=== PATIENT | female | born 1965 | race Caucasian/White ===

== ENCOUNTER 2017-10-30 14:47 | Emergency (ER) | payer BC ==
[~2017-10-30] VITALS: Ht 160 cm; Wt 77.1 kg
--- NOTE | 2017-10-30 15:03 | ED.ADGEN ---
Past History Past Medical History: No Pertinent History Adult General Chief Complaint Chief Complaint left foot pain HPI HPI Patient is a 52 year old female who presents with left foot pain. Just prior to arrival pt dropped her wallet and stepped onto the wallet and twisted the foot and fell onto her knees. Now with pain in left foot and superficial abrasion to the R knee. Pt unsure of his last tetanus immunization. Review of Systems Review of Systems Constitutional: Denies fever or chills [] Eyes: Denies eye pain [] HENT: Denies nasal congestion or sore throat [] Respiratory: Denies cough or shortness of breath [] Cardiovascular: Denies chest pain GI: Denies abdominal pain, nausea, vomiting, or change in stools : Denies dysuria or hematuria [] Musculoskeletal: Denies back pain Integument: Denies rash Neurologic: Denies headache, focal weakness or sensory changes [] Current Medications Current Medications Current Medications Medications (Trade) Dose Ordered Sig/Jeremy Start Time Stop Time Status Last Admin Dose Admin Diphtheria/ Tetanus/Acell Pertussis (Boostrix) 0.5 ml ONCE ONCE 10/30/17 15:30 10/30/17 15:31 DC 10/30/17 15:30 0.5 ML Allergies Allergies Allergies Coded Allergies Type Severity Reaction Last Updated Verified No Known Drug Allergies 10/30/17 No Physical Exam Physical Exam Constitutional: Well developed, well nourished, no acute distress, non-toxic appearance. HENT: Normocephalic, atraumatic Eyes: conjunctiva normal, no discharge. Neck:supple Cardiovascular:Heart rate regular with regular rhythm Lungs & Thorax: No respiratory distress Skin: Warm, dry Extremities: Left foot with tenderness over the fifth metatarsal, wiggles toes, DP pulse intact, cap refill less than 3 seconds, no tenderness of her ankle remaining foot on the right knee has superficial abrasion over the anterior knee with good hemostasis Neurologic: Alert and oriented X 3, normal sensory function, no focal deficits noted. Psychologic: mood normal. Current Patient Data Vital Signs Vital Signs Date Time Temp Pulse Resp B/P (MAP) Pulse Ox O2 Delivery O2 Flow Rate FiO2 10/30/17 14:58 98.7 92 18 96 Room Air EKG EKG [] Radiology/Procedures Radiology/Procedures X-ray left foot Left foot radiographs History: Twisted left foot. Comparison: None. Findings: AP, lateral, and oblique views of the left foot. There is an acute, nondisplaced, transversely oriented fracture involving the proximal shaft of the fifth metatarsal. Impression: Acute fifth metatarsal fracture. Course & Med Decision Making Course & Med Decision Making Pertinent Labs and Imaging studies reviewed. (See chart for details) Pt stated she took aleve just prior to arrival, declines pain meds. XRay + for metatarsal fracture 5th. Posterior splint placed by nursing, reviewed by me with good distal neurovascular status. Care instructions given, ibuprofen and few norco rx given, referred to Dr. Adams for close f/u. Crutches, non-weight bearing. Final Impression Final Impression Acute fifth metatarsal fracture[] Problems: Dragon Disclaimer Dragon Disclaimer This electronic medical record was generated, in whole or in part, using a voice recognition dictation system. ANNE COX MD Oct 30, 2017 15:03
[2017-10-30] MEDS ORDERED: DIPHTH,PERTUSS(ACELL),TET TOX 0.5 ML DISP.SYRIN. VAX IM ONE (15:30)
[2017-10-30] MEDS ORDERED: HYDR-971 PO (15:31)
[2017-10-30] MEDS ORDERED: IBUP800T19 PO (15:31)
--- NOTE | 2017-10-30 15:32 | RAD ---
Left foot radiographs History: Twisted left foot. Comparison: None. Findings: AP, lateral, and oblique views of the left foot. There is an acute, nondisplaced, transversely oriented fracture involving the proximal shaft of the fifth metatarsal. Impression: Acute fifth metatarsal fracture.
[2017-10-30 15:53] VITALS: BP 115/78
== END 2017-10-30 15:53 | disposition home or self-care (01) ==
LOC: ER 14:47
DX: S92.352A Displaced fracture of fifth metatarsal bone, left foot, initial encounter for closed fracture (principal); S80.211A Abrasion, right knee, initial encounter; W01.0XXA Fall on same level from slipping, tripping and stumbling without subsequent striking against object, initial encounter; Y93.89 Activity, other specified; Y99.8 Other external cause status; Y92.89 Other specified places as the place of occurrence of the external cause
CPT/HCPCS: 29515; 73630; 90471; 90715; 99284-25